=== PATIENT | male | born 1955 | race Caucasian/White ===

== ENCOUNTER 2016-08-26 16:30 | Emergency (ER) | payer OTHER ==
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
[2016-08-26] MEDS ORDERED: SKIN ADHESIVE (DERMABOND) 1 EACH TP ONE ×2 (19:11→19:12)
[2016-08-26 19:22] VITALS: BP 140/81; PULSE 74; RESP 16; O2SAT 96
[2016-08-26 19:31] VITALS: TEMP 98.6
== END 2016-08-26 19:34 | disposition home or self-care (01) ==
LOC: EDUNIT#
PROC: 09Q1XZZ Repair Left External Ear, External Approach (ICD-10-PCS; principal; 2016-08-26)
DX: S42.001A Fracture of unspecified part of right clavicle, initial encounter for closed fracture (principal); S01.311A Laceration without foreign body of right ear, initial encounter; V19.9XXA Pedal cyclist (driver) (passenger) injured in unspecified traffic accident, initial encounter; Y92.89 Other specified places as the place of occurrence of the external cause; Y93.55 Activity, bike riding
CPT/HCPCS: A4565